=== PATIENT | male | born 1960 | race Caucasian/White ===

== ENCOUNTER 2019-09-19 10:00 | Emergency (ER) | payer OTHER ==
[~2019-09-19] VITALS: Ht 175.3 cm; Wt 74.4 kg
[2019-09-19] MEDS ORDERED: LIDOCAINE 1% PF 30 ML VIAL. ONE (10:24)
[2019-09-19] MEDS ORDERED: LIDOCAINE 1% Multi-Dose 20 ML VIAL. IJ ONE (10:30)
--- NOTE | 2019-09-19 10:43 | PHYS DOC ---
Past History Past Medical History: Other Additional Past Medical Histor: hepatitis C Smoking: Non-smoker Alcohol Use: None Drug Use: None Adult General Chief Complaint Chief Complaint: LACERATION/AVULSION HPI HPI Patient is a 59-year-old male presents with a cut to the back of his right hand. This happened approximately 30 minutes prior to arrival. He was working and a piece of metal fell onto the back of his hand. It was a fresh cut metal edge that struck the back of his hand causing the laceration. No dirt or foreign bodies with the metal. There is no numbness, tingling, or weakness. Bleeding was controlled with pressure. Symptoms are mild to moderate. His last tetanus vaccine was within the past year.[] Review of Systems Review of Systems Constitutional: Denies fever or chills [] Eyes: Denies change in visual acuity, redness, or eye pain [] HENT: Denies nasal congestion or sore throat [] Respiratory: Denies cough or shortness of breath [] Cardiovascular: No chest pain or palpitations[] GI: Denies abdominal pain, nausea, vomiting, bloody stools or diarrhea [] : Denies dysuria or hematuria [] Musculoskeletal: Denies back pain or joint pain [] Integument: Denies rash or skin lesions. See history of present illness [] Neurologic: Denies headache, focal weakness or sensory changes [] Endocrine: Denies polyuria or polydipsia [] All other systems were reviewed and found to be within normal limits, except as documented in this note. Allergies Allergies Allergies Coded Allergies Type Severity Reaction Last Updated Verified ibuprofen Allergy Unknown 09/19/19 Yes Physical Exam Physical Exam Constitutional: Well developed, well nourished, no acute distress, non-toxic appearance. [] HENT: Normocephalic, atraumatic, bilateral external ears normal, oropharynx moist, no oral exudates, nose normal. [] Eyes: PERRLA, EOMI, conjunctiva normal, no discharge. [] Neck: Normal range of motion, no tenderness, supple, no stridor. [] Cardiovascular:Heart rate regular rhythm, no murmur [] Lungs & Thorax: Bilateral breath sounds clear to auscultation [] Abdomen: Not examined[] Skin: Warm, dry, no erythema, no rash. Laceration on the dorsum of the right hand, in the region of the third metacarpal phalangeal joint. Full active range of motion of all fingers, FDS, FDP, and extensor mechanisms are intact. No evidence of foreign body. No pain with axial loading. Wound was explored through full range of motion, no joint capsule or tendon injury noted. [] Back: No tenderness, no CVA tenderness. [] Extremities: No tenderness, no cyanosis, no clubbing, ROM intact, no edema. [] Neurologic: Alert and oriented X 3, normal motor function, normal sensory function, no focal deficits noted. [] Psychologic: Affect normal, judgement normal, mood normal. [] EKG EKG [] Radiology/Procedures Radiology/Procedures [] Course & Med Decision Making Course & Med Decision Making Pertinent Labs and Imaging studies reviewed. (See chart for details) Emergency department course: Patient arrived, was placed in bed, and tolerated exam well. Wound was closed as noted in the laceration repair section. Findings and plan were discussed with the patient voiced understanding. All questions were answered. He was discharged in improved condition. Issue making: Patient has laceration to the dorsum of his right hand. There is no evidence of neurologic or vascular compromise. This does not appear to be a dirty wound. No evidence of ligament or tendon injury. No evidence of joint capsule involvement.[] Dragon Disclaimer Dragon Disclaimer This electronic medical record was generated, in whole or in part, using a voice recognition dictation system. Departure Departure: Impression: Primary Impression: Laceration of hand Disposition: 01 HOME, SELF-CARE Condition: IMPROVED Referrals: PCP,NO (PCP) Patient Instructions: Sutured Wound Care Additional Instructions: Follow-up with your regular doctor in 2 days for a wound check. Sutures to be removed in 10-14 days. Return to the ER if increasing pain, redness, purulent drainage, or any other concerns. Laceration Repair Lac Repair Indication: Right hand laceration [] Procedure: The patient was placed in the appropriate position and anesthesia around the laceration was provided with 3 mL of 1% lidocaine without epinephrine. The area was then cleansed using a Betadine solution. The laceration was closed with 5, 4-0 nylon simple interrupted sutures. The wound area was then dressed with sterile dressing Total repaired wound length: 3 cm. Other Items: None The patient tolerated the procedure well. Hemostasis was achieved. Complications: None Problem Qualifiers Primary Impression: Laceration of hand Encounter type: initial encounter Foreign body presence: without foreign body Laterality: right Qualified Codes: S61.411A - Laceration without foreign body of right hand, initial encounter SAWYER FRANCO DO Sep 19, 2019 10:43
[2019-09-19 10:55] VITALS: BP 124/73
== END 2019-09-19 10:59 | disposition home or self-care (01) ==
LOC: ER 10:00 → EEVIPCON 10:00 → ER 10:59
DX: S61.411A Laceration without foreign body of right hand, initial encounter (principal); Z88.6 Allergy status to analgesic agent; W26.8XXA Contact with other sharp object(s), not elsewhere classified, initial encounter; Y93.89 Activity, other specified; Y92.89 Other specified places as the place of occurrence of the external cause; Y99.8 Other external cause status
CPT/HCPCS: 12002; 99283